=== PATIENT | female | born 1955 | race Caucasian/White ===

== ENCOUNTER 2018-02-28 12:33 | Emergency (ER) | payer OTHER ==
[~2018-02-28] VITALS: Ht 165.1 cm; Wt 89.4 kg
[~2018-02-28 12:33] MED LIST: BACTRIM DS TAB1 EACH PO; CORGARD20 MG PO; DOCUSATE SODIU100 MG PO; DOXYCYCLINE 10100 MG PO; ECOTRIN325 MG PO; HYDROCODONE-AP1 EAC6 PO; KEFLEX500 MG PO; METAMUCIL PAC1 UDPKT PO; NOHOMEMEDICATIONS; OXYCODONE HCL5 MG PO; PERCOCET PO; PHENERGAN 25 MG25 M1 PO; PROTONIX40 M1 PO
[2018-02-28] MEDS ORDERED: AMBIEN 5 MG TABL5 M1 PO (12:41)
[2018-02-28 14:01] LABS: HEMATOCRIT 32.3 % (37.0-47.0); HEMOGLOBIN 11.2 gm/dL (12.0-15.0); MCH 32.7 pg (26.0-34.0); MCHC 34.7 g/dL (28.0-37.0); MCV 94.3 fL (80.0-100.0); MPV 7.1 fl. (7.2-11.1); NUCLEATED RBCS 0 /100WBC; PLATELET COUNT* 128 thou/uL (150-400); RBC 3.42 mil/uL (4.20-5.00); RDW-CV 13.9 % (10.5-14.5); WBC 4.1 thou/uL (4.0-11.0)
[2018-02-28 14:11] LABS: CALCIUM 8.1 mg/dL (8.5-10.1); CREATININE 0.7 mg/dL (0.6-1.3); POTASSIUM 3.8 mmol/L (3.5-5.1)
[2018-02-28 14:16] LABS: ALBUMIN 2.5 g/dL (3.4-5.0); TOTAL BILIRUBIN 1.5 mg/dL (<0.1-1.0); TOTAL PROTEIN 6.7 g/dL (6.4-8.2)
[2018-02-28 14:17] LABS: APTT 34.5 Seconds (25.0-31.3); INR 1.3; PROTIME 13.4 Seconds (9.20-11.50)
[2018-02-28 14:47] LABS: ABSOLUTE EOSINOPHILS 0.4 thou/uL (0.0-0.7); ABSOLUTE LYMPHOCYTES 0.7 thou/uL (0.8-5.3); ABSOLUTE MONOCYTES 0.4 thou/uL (0.0-1.2); ABSOLUTE NEUTROPHILS 2.6 thou/uL (1.6-8.1); ATYPICAL LYMPHS 6 %; PLATELET ESTIMATE ADEQUATE
[2018-02-28] MEDS ORDERED: BACTRIM DS TAB1 EACH PO (16:03)
[2018-02-28 16:16] VITALS: BP 148/88
== END 2018-02-28 16:17 | disposition home or self-care (01) ==
LOC: M.ERS 12:33
PROVIDERS: Personal Emergency Response Attendant
DX: L03.115 Cellulitis of right lower limb (principal); K74.60 Unspecified cirrhosis of liver

== ENCOUNTER 2019-08-04 22:22 | Inpatient (IN) | payer MEDICARE ==
[~2019-08-04] VITALS: Ht 152.4 cm; Wt 103.3 kg
[~2019-08-04 22:22] MED LIST changes: +AMBIEN 5 MG TABL5 M1 PO
[2019-08-04 22:25] VITALS: BP 136/70
[2019-08-04 22:58] LABS: ABSOLUTE LYMPHOCYTES 0.4 thou/uL (0.8-5.3); ABSOLUTE MONOCYTES 0.9 thou/uL (0.0-1.2); ABSOLUTE NEUTROPHILS 4.7 thou/uL (1.6-8.1); BASOPHILS 0.5 %; EOSINOPHILS 0.6 %; HEMOGLOBIN 11.1 gm/dL (12.0-15.0); LYMPHOCYTES 7.2 %; MCH 33.9 pg (26.0-34.0); MCHC 35.7 g/dL (28.0-37.0); MCV 94.9 fL (80.0-100.0); MONOCYTES 15.1 %; NUCLEATED RBCS 0 /100WBC; PLATELET COUNT* 86 thou/uL (150-400); POLYS 76.6 %; RBC 3.26 mil/uL (4.20-5.00); RDW-CV 15.4 % (10.5-14.5); WBC 6.2 thou/uL (4.0-11.0)
[2019-08-04 23:05] LABS: CALCIUM 7.2 mg/dL (8.5-10.1); CREATININE 0.8 mg/dL (0.6-1.3); POTASSIUM 3.4 mmol/L (3.5-5.1)
[2019-08-04 23:16] LABS: ALBUMIN 2.6 g/dL (3.4-5.0); MAGNESIUM 1.8 mg/dL (1.8-2.4); TOTAL BILIRUBIN 3.4 mg/dL (<0.1-1.0); TOTAL PROTEIN 6.4 g/dL (6.4-8.2)
[2019-08-04 23:19] LABS: INR 1.5; PROTIME 15.1 Seconds (9.20-11.50)
[2019-08-05 05:09] VITALS: BP 109/51
[2019-08-05 05:15] VITALS: BP 116/49
[2019-08-05] MEDS ORDERED: AMBIEN 10 MG TA10 MG PO (06:34)
--- NOTE | 2019-08-05 07:10 | NUR ---
RECEIVED REPORT FROM ER NURSE ISAAC. PATIENT BROUGHT TO FLOOR AT 0515. PATIENT ORIENTED TO UNIT, ROOM, CALL-LIGHT, BED, AND HOSPITAL POLICY. ASSESSMENT COMPLETED CHARTED. CARDIAC MONITORING IN PLACE. BED LOCKED AND IN LOWEST POSITION. FALL PRECAUTIONS IN PLACE FOR PATIENT SAFETY. CLWR. HOURLY ROUNDING IN PLACE FOR PATIENT SAFETY.
--- NOTE | 2019-08-05 07:15 | NUR ---
CHANGE OF SHIFT, BEDSIDE REPORT GIVEN PATIENT SEEN AT BEDSIDE, IN BED ASLEEP ASSUMED PATIENT CARE
[2019-08-05 08:32] VITALS: BP 112/54
[2019-08-05 12:13] VITALS: BP 111/45
--- NOTE | 2019-08-05 14:13 | NUR ---
Pt is covid pending, CM spoke with Pt via phone. Pt resides at home with her son. Independent. No DME. No hx of HH or SNF. Goal is home at [place]. Following.
--- NOTE | 2019-08-05 15:28 | EKG ---
[place] [address] ELECTROCARDIOGRAM REPORT Name: RANJAN BAZZI Room: [address] IN ..#: [id number] Admission: 08/05/19 Attend Phys: Elba Dixon, Discharge: Date of : 53 Date of Service: 08/04/19 2233 Report #: [id number] THIS REPORT FOR: //name// [facility] ED Test Date: 2019-08-04 Test Time: 22:33:13 Pat Name: RANJAN BAZZI Department: Room: [facility] Gender: F Vascular Radiologist: ESEQUIEL : 1955 Requested By: Sheron Brown Order Number: [id number] MD: Benjamín Hemphill Measurements Intervals [place] Rate: 99 P: 33 MA: 146 QRS: -35 QRSD: 94 T: 57 QT: 357 QTc: 459 Interpretive Statements Sinus rhythm Atrial premature complex Left axis deviation Anterior infarct, old Compared to ECG 12/10/2016 08:36:58 Atrial premature complex(es) now present Left-axis deviation now present Myocardial infarct finding now present Electronically Signed On 08-05-2019 15:26:56 CDT by Benjamín Hemphill [email or web address] <ELECTRONICALLY SIGNED> By: Benjamín Hemphill MD, FACC 08/05/19 1526 2233 2233 Benjamín Hemphill MD, [facility] /EPI
[2019-08-05 16:03] VITALS: BP 140/71
[2019-08-05 20:00] VITALS: BP 135/64
[2019-08-06] VITALS (8 sets, daily range): BP systolic 116–167; BP diastolic 60–81
--- NOTE | 2019-08-06 05:13 | NUR ---
ASSUMED PT CARE AT APPROX 1930. PT IS AWAKE AND ORIENTED X4. PT IS TRACING ST w/ OCCASSIONAL PACs ON THE TAX CLERK. ASSESSMENT DONE AND CHARTED. PT DENIES PAIN. PT IS SOA WITH ACTIVITY. spO2 IS 90% ON ROOM AIR, PT IS PLACED ON 2L OF O2/NC, spo2-92-94% ON 2L OF O2/NC. PT IS ABLE TO SLEEP MOST OF THE NIGHT. CALL LIGHT WITHIN REACH. HOURLY ROUNDING DONE FOR PT SAFETY. FALL PRECAUTIONS IN PLACE.
[2019-08-06 06:26] LABS: ABSOLUTE BASOPHILS 0.1 thou/uL (0.0-0.2); ABSOLUTE EOSINOPHILS 0.5 thou/uL (0.0-0.7); ABSOLUTE LYMPHOCYTES 0.4 thou/uL (0.8-5.3); ABSOLUTE MONOCYTES 1.1 thou/uL (0.0-1.2); ABSOLUTE NEUTROPHILS 6.6 thou/uL (1.6-8.1); BASOPHILS 0.8 %; EOSINOPHILS 5.3 %; HEMATOCRIT 29.8 % (37.0-47.0); HEMOGLOBIN 10.7 gm/dL (12.0-15.0); LYMPHOCYTES 4.8 %; MCH 33.8 pg (26.0-34.0); MCHC 35.8 g/dL (28.0-37.0); MCV 94.6 fL (80.0-100.0); MONOCYTES 12.9 %; NUCLEATED RBCS 0 /100WBC; PLATELET COUNT* 90 thou/uL (150-400); POLYS 76.2 %; RBC 3.16 mil/uL (4.20-5.00); RDW-CV 15.5 % (10.5-14.5); WBC 8.7 thou/uL (4.0-11.0)
[2019-08-06 06:31] LABS: CREATININE 0.8 mg/dL (0.6-1.3); POTASSIUM 3.5 mmol/L (3.5-5.1)
--- NOTE | 2019-08-06 08:00 | NUR ---
ASSUMED CARE OF PATIENT THIS MORNING FROM NIGHT NURSE. PT IS DOING WELL WITH NO CO OF PAIN OR NAUSEA. SHE WAS EDUCATED ON FALL SAFETY, POC AND USING THE CALL LIGHT FOR ASSISTANCE, WILL CONTINUE TO MONITOR.
--- NOTE | 2019-08-06 12:06 | NUR ---
Covid negative. Per , anticipate dc to home tomorrow.
--- NOTE | 2019-08-06 13:30 | NUR ---
PT BECAME UNSTEADY AND SAT DOWN ON THE FLOOR. SHE WAS ACCESSED AND HAS NO CHANGE IN HER CONDITION. SHE STATES THAT THERE ARE CO OF PAIN OR NAUSEA. WILL CONTINUE TO MONITOR.
--- NOTE | 2019-08-06 16:06 | NUR ---
PT STATES SHE DOES NOT WANT TO BE A FALL RISK. SHE ALSO STATED SHE WILL TURN THE BED ALARM OFF AGAIN. PT WAS RE EDUCATED ON FALL SAFETY, USING THE CALL LIGHT FOR ASSISTANCE. BED IN LOWEST POSITION, CALL LIGHT IN REACH, BED ALARM IS ON. WILL CONTINUE TO MONITOR.
[2019-08-07 04:00] VITALS: BP 126/62
--- NOTE | 2019-08-07 04:22 | NUR ---
ASSUMED PT CARE AT APPROX 1930. PT IS AWAKE AND ORIENTED X4,BUT FORGETFUL. SUGARCANE RESEARCH TECHNICIAN IS TRACING SR/ST. PT DENIES PAIN. PT APPEARS TO BE SHORT OF AIR, BUT PT DENIES THAT SHE IS HAVING TROUBLES BREATHING. PT IS ON 2L OF O2/NC, NO DESATURATIONS NOTED. PT HAD A FEBRILE EPISODE T=102, TYLENOL GIVEN PER APR, REPEAT T=98.1. PT IS ABLE TO SLEEP MOST OF THE NIGHT, CALL LIGHT WITHIN REACH. HOURLY ROUNDING DONE FOR PT SAFETY.HIGH FALL PRECAUTIONS IN PLACE.
[2019-08-07 05:06] LABS: ABSOLUTE BASOPHILS 0.1 thou/uL (0.0-0.2); ABSOLUTE EOSINOPHILS 0.7 thou/uL (0.0-0.7); ABSOLUTE LYMPHOCYTES 0.5 thou/uL (0.8-5.3); ABSOLUTE MONOCYTES 0.8 thou/uL (0.0-1.2); ABSOLUTE NEUTROPHILS 5.2 thou/uL (1.6-8.1); BASOPHILS 0.7 %; EOSINOPHILS 9.3 %; HEMATOCRIT 29.2 % (37.0-47.0); HEMOGLOBIN 10.4 gm/dL (12.0-15.0); LYMPHOCYTES 7.1 %; MCH 33.5 pg (26.0-34.0); MCHC 35.4 g/dL (28.0-37.0); MCV 94.6 fL (80.0-100.0); MONOCYTES 10.7 %; MPV 8.7 fl. (7.2-11.1); NUCLEATED RBCS 0 /100WBC; PLATELET COUNT* 99 thou/uL (150-400); POLYS 72.2 %; RBC 3.09 mil/uL (4.20-5.00); RDW-CV 15.3 % (10.5-14.5); WBC 7.3 thou/uL (4.0-11.0)
[2019-08-07 07:02] LABS: CALCIUM 6.9 mg/dL (8.5-10.1); CREATININE 0.8 mg/dL (0.6-1.3); POTASSIUM 3.4 mmol/L (3.5-5.1)
[2019-08-07 08:15] VITALS: BP 116/68
[2019-08-07 12:00] VITALS: BP 139/72
[2019-08-07 12:12] LABS: URINE BLOOD NEGATIVE (Negative); URINE CLARITY CLEAR; URINE COLOR YELLOW; URINE GLUCOSE-RANDOM NEGATIVE (Negative); URINE KETONES NEGATIVE (Negative); URINE LEUKOCYTES-REFLEX NEGATIVE (Negative); URINE NITRITE-REFLEX NEGATIVE (Negative); URINE PROTEIN NEGATIVE (Negative); URINE SPECIFIC GRAVITY 1.025 (1.005-1.030)
[2019-08-07 12:14] LABS: ICTOTEST (BILI CONFIRMATORY) Negative (Negative); URINE BILIRUBIN 1+ (Negative)
--- NOTE | 2019-08-07 12:23 | NUR ---
Per , no dc today, Pt febrile within the past 24 hours.
[2019-08-07 16:00] VITALS: BP 153/84; BP 157/74
--- NOTE | 2019-08-07 19:26 | NUR ---
ASSESSMENT CHARTED. VSS THROUGHOUT SHIFT. UP WITH SBA IN ROOM. TITRATED TO ROOM AIR. STILL LABORED WITH HER BREATHING AND SOME WHEEZING ON AND OFF. SOA WITH ANY MOVEMENT. NO OTHER COMPLAINTS.
[2019-08-07 20:22] VITALS: BP 158/67
[2019-08-07 23:45] VITALS: BP 144/63
[2019-08-08 04:00] VITALS: BP 153/67
[2019-08-08 05:09] LABS: CREATININE 0.6 mg/dL (0.6-1.3); POTASSIUM 3.9 mmol/L (3.5-5.1)
[2019-08-08 08:00] VITALS: BP 124/68
--- NOTE | 2019-08-08 08:03 | NUR ---
PT IS ABLE TO COMMUNICATE HER NEEDS TO STAFF EFFECTIVELY. SHE HAS DENIED THE NEED FOR PAIN MEDICATION UP TO THIS TIME. BED ALARM ON, HIGH FALL RISK.
--- NOTE | 2019-08-08 10:07 | NUR ---
0730 ASSUMED CARE OF PATIENT. PLEASE SEE DOCUMENTED ASSESSMENT. ONLY PATIENT COMPLAINT IS SORE IV WHICH IS NOTED TO BE DISLODGED AND WAS REMOVED.
--- NOTE | 2019-08-08 11:58 | NUR ---
ID consulted. Plan home with son at vt. Following.
[2019-08-08 12:00] VITALS: BP 146/74
--- NOTE | 2019-08-08 12:06 | NUR ---
Nutrition: screen d/t BMI. Pt reported doing well with meals, normal appetite. Wt up from last year. ALbumin 2.6. BG 91-126. Meds reviewed. Pt declined diet infomation. Assess at low nutrition risk at this time.
--- NOTE | 2019-08-08 14:54 | 2DMMODE ---
[place] [address] 2 D/M-MODE ECHOCARDIOGRAM Name: BAZZIRANJAN Room: [address] IN .R.#: [id number] Admission: 08/05/19 Attend Phys: Elba Dixon, Discharge: Date of : 53 Date of Service: 08/08/19 1453 Report #: [id number] THIS REPORT FOR: cc: FAM - No family physician/PCP FAM - No family physician/PCP Ranjit Christian MD [facility] ~ APPROVED REPORT Study performed: 08/08/2019 12:58:36 EXAM: Comprehensive 2D, Doppler, and color-flow Echocardiogram Patient Location: In-Patient BSA: 1.95 HR: 95 bpm BP: 146/74 mmHg Other Information Study Quality: Good Indications Dyspnea Fever 2D Dimensions IVSd: 12.27 (7-11mm) LVOT Diam: 20.73 (18-24mm) LVDd: 49.09 mm PWd: 11.75 (7-11mm) Ascending Ao: 30.71 (22-36mm) LVDs: 38.67 (25-40mm) Aortic Root: 22.96 mm Volumes Left Atrial Volume (Systole) LA ESV Index: 18.10 mL/m2 Aortic Valve AoV Peak Bello.: 2.63 m/s AO Peak Gr.: 27.62 mmHg LVOT Max P.87 mmHg AO Mean Gr.: 15.94 mmHg LVOT Mean P.49 mmHg LVOT Max V: 1.31 m/s AO V2 VTI: 55.79 cm LVOT Mean V: 0.86 m/s LUANN (VTI): 1.58 cm2 LVOT V1 VTI: 26.14 [place] [address] 2 D/M-MODE ECHOCARDIOGRAM Name: RANJAN BAZZI Room: [address] IN .R.#: [id number] Admission: 08/05/19 Attend Phys: Elba Dixon, Discharge: Date of : 53 Date of Service: 08/08/19 1453 Report #: [id number] Mean Gr.: 5.69 mmHg E/A Ratio: 1.21 MV Decel. Time: 192.69 ms MV E Max Bello.: 1.28 m/s MV PHT: 55.88 ms MVA (PHT): 3.94 cm2 TDI E/Lateral E': 16.00 E/Medial E': 9.14 Medial E' Bello.: 0.14 m/s Lateral E' Bello.: 0.08 m/s Pulmonary Valve PV Peak Bello.: 1.46 m/s PV Peak Gr.: 8.57 mmHg Tricuspid Valve RAP Estimate: 5.00 mmHg TR Peak Gr.: 31.06 mmHg RVSP: 36.06 mmHg PA Pressure: 36.06 mmHg Left Ventricle The left ventricle is normal size. There is normal LV segmental wall motion. Mild concentric left ventricular hypertrophy. Left ventricular systolic function is normal. The left ventricular ejection fraction is within the normal range. LVEF is 60%. The left ventricular diastolic function is normal. Right Ventricle The right ventricle is normal size. The right ventricular systolic function is normal. Atria Left atrium is mildly dilated. The right atrium size is normal. Aortic Valve The Aortic valve is sclerotic. No aortic regurgitation is present. Mild to moderate aortic stenosis. Mitral Valve There is mitral annular calcification. Mild mitral regurgitation. No evidence of mitral valve stenosis. Tricuspid Valve The tricuspid valve is normal in structure. Trace [place] [address] 2 D/M-MODE ECHOCARDIOGRAM Name: BAZZIRANJAN Room: [address]#: [id number] Admission: 08/05/19 Attend Phys: Elba Dixon, Discharge: Date of : 53 Date of Service: 08/08/19 1453 Report #: [id number] Pulmonic Valve The pulmonary valve is normal in structure. There is no pulmonic valvular regurgitation. Great Vessels The aortic root is normal in size. IVC is not well visualized. Pericardium There is no pericardial effusion. Possible pleural effusion. <Conclusion> The left ventricle is normal size. Mild concentric left ventricular hypertrophy. Left ventricular systolic function is normal. The left ventricular ejection fraction is within the normal range. LVEF is 60%. The right ventricle is normal size. Left atrium is mildly dilated. The right atrium size is normal. The Aortic valve is sclerotic. No aortic regurgitation is present. Mild to moderate aortic stenosis. There is mitral annular calcification. Mild mitral regurgitation. No evidence of mitral valve stenosis. The tricuspid valve is normal in structure. There is normal LV segmental wall motion. <ELECTRONICALLY SIGNED> By: Ranjit Christian MD, FACC 08/08/19 1453 1453 1453 Ranjit Christian MD, FACC /INF
[2019-08-08 15:52] VITALS: BP 105/63
--- NOTE | 2019-08-08 18:13 | NUR ---
PATIENT WITH SOME PROGRESSION TOWARDS GOALS. HAS BEEN ON ROOM AIR MOST OF THE DAY. REMAINS SOA WITH EXERTION AND USUALLY CLIPS WORDS. IV ANTIBIOTICS RESUMED. HAS BEEN UP TO BATHROOM AND IN ROOM MORE. PATIENT WOULD LIKE TO GO HOME TOMORROW.
[2019-08-08 20:00] VITALS: BP 151/74
[2019-08-08 23:45] VITALS: BP 146/58
[2019-08-09 04:00] VITALS: BP 119/53
[2019-08-09 04:19] LABS: HEMATOCRIT 29.8 % (37.0-47.0); HEMOGLOBIN 10.6 gm/dL (12.0-15.0); MCH 33.2 pg (26.0-34.0); MCHC 35.4 g/dL (28.0-37.0); MCV 93.9 fL (80.0-100.0); MPV 8.2 fl. (7.2-11.1); RBC 3.18 mil/uL (4.20-5.00); RDW-CV 15.4 % (10.5-14.5); WBC 5.9 thou/uL (4.0-11.0)
[2019-08-09 05:19] LABS: CALCIUM 7.4 mg/dL (8.5-10.1); CREATININE 0.6 mg/dL (0.6-1.3); MAGNESIUM 1.9 mg/dL (1.8-2.4); POTASSIUM 3.9 mmol/L (3.5-5.1)
[2019-08-09 08:00] VITALS: BP 131/64
[2019-08-09] MEDS ORDERED: LINEZOLID600 MG PO (10:10)
[2019-08-09] MEDS ORDERED: CEFDINIR300 MG PO (10:10)
--- NOTE | 2019-08-09 10:31 | CON ---
[address] [address] CONSULTATION Name: JLUISRANJAN Adeel Room: [address] IN M.R.#: [id number] Admission: 08/05/19 Attend Phys: Elba Dixon MD Discharge: Date of : 53 Report #: [id number] THIS REPORT FOR: //name// cc: TAURUS Velez family physician/PCP TAURUS - Rosie family physician/PCP ~ THIS REPORT FOR: //name// CC: [facility] physician/PCP Elba Dixon DATE OF SERVICE: 08/08/2019 INFECTIOUS DISEASE CONSULTATION ATTENDING PHYSICIAN: Stalin Wing MD REASON FOR EVALUATION: Pneumonitis with positive MRSA surveillance of the nares. The patient has improved, although remains markedly dyspneic. Recommendation for antimicrobial therapy. HISTORY OF PRESENT ILLNESS: Chart reviewed, patient examined. This is a 64-year-old woman who notes a previous history of pneumonia back in 01/2019. She recovered fully. She noted over the course of the last 3 weeks, had increasing swelling associated with her bilateral lower extremities, right greater than left. This is not new for her, although it was not explained at this point. She has underlying cirrhosis with portal venous hypertension. She was taking her grandchild to the dentist, was on screen, was found to have fevers. These persisted, she became progressively dyspneic. Over the course of the couple of days prior to admission, did have associated cough that was nonproductive and progressive weakness. Denies significant gastrointestinal-related complaints. She was evaluated and tested negative for SARS-CoV-2. Repeat test was again negative as well. Chest x-ray showed a clear wedge-shaped infiltrate in right middle lobe. CT confirmed that without evidence of pulmonary embolus, a normal lactic acid and troponin level was normal. Empirically started on combination therapy with cefdinir as well as azithromycin. Clinically, she states she has improved, although she is overtly dyspneic at rest. She is intermittently on supplemental oxygen. She does have a cough and still it is nonproductive. Repeat chest x-ray actually showed improvement of the wedge-shaped infiltrate. MRSA by PCR was positive for surveillance. Vancomycin was added. Denies any particular exposure history. She works at a [employer], exposed to the public. Denies any animal exposure, no recent travel. ALLERGIES: None known. MEDICATIONS: Include vancomycin, albuterol, azithromycin, cefdinir, famotidine, [place] [address] CONSULTATION Name: BAZZIRANJAN Room: [address] IN [facility]#: [id number] Admission: 08/05/19 Attend Phys: Elba Dixon MD Discharge: Date of : 53 Report #: [id number] enoxaparin, zolpidem, hydralazine, ondansetron as needed. PAST MEDICAL HISTORY: Has known history of hepatitis C, she has got cirrhosis, portal hypertension, splenomegaly, bilateral lower extremity edema, likely venous stasis component of venous hypertension, previous total knee replacement, laparoscopic cholecystectomy, hysterectomy, hernia surgeries, colon resection for cancer. SOCIAL HISTORY: Nonsmoker, no ethanol, no illicit drug use. FAMILY HISTORY: Noncontributory. REVIEW OF SYSTEMS: As above, otherwise unremarkable. PHYSICAL EXAMINATION: GENERAL: She is overtly dyspneic with tachypnea, lying in the right lateral decubitus position. She is generally lucid. She is in moderate distress, overall appears somewhat chronically ill, although obese. She is undernourished. VITAL SIGNS: Temperature 98.2, T-max in the last 48 hours of 102. Temperature curve has trended to the normal. Pulse 91, respirations 20, blood pressure is 124/68. SKIN: Warm, dry. HEENT: Normocephalic. Extraocular muscles intact. NECK: Supple. LUNGS: On early exam, there were some wheezes. This improved with a course of deeper breathing. Also, diminished breath sounds on the right. Few scattered crackles. HEART: Regular. She does have a murmur. ABDOMEN: Obese, soft, nontender. EXTREMITIES: Marked edema is somewhat asymmetrical right greater than left, but 3-4+ nonpitting. GENITOURINARY AND RECTAL: Deferred. LABORATORY DATA: Glucose is high at 129 recently. PCR for MRSA was positive. Electrolytes: Sodium 136, potassium 3.9, chloride 105, bicarbonate is 28, BUN and creatinine 10 and 0.6, anion gap of 3, glucose of 92. Estimated GFR of 100. Urinalysis otherwise unremarkable microscopically. Chest x-ray in followup showed definite improvement in infiltrates involving the posterior superior lateral aspect of the right middle lobe. CBC from yesterday; white count of 7.3, hemoglobin 10.4, hematocrit 29.2, platelets of 99. Blood cultures are sterile thus far. Prealbumin low at 5.1. Coronavirus was negative. CT of the chest PE protocol, mild cardiomegaly, had pericardial effusion, wedge-shaped atelectasis, right middle lobe with suspected pneumonitis, marked splenomegaly, nodular appearing liver consistent with cirrhosis. No evidence of acute PE. Liver functions: AST of 3.4, ALT of 21, although bilirubin was 3.4, albumin of [facility] [address] [place] [address] CONSULTATION Name: RANJAN BAZZI Room: [address] IN [facility]#: [id number] Admission: 08/05/19 Attend Phys: lEba Dixon MD Discharge: Date of : 53 Report #: [id number] 2.6, total protein is 6.4, elevated D-dimer of 9.92. ASSESSMENT: Pneumonitis in a patient that certainly appears to have an infectious component. So, the driving at this point is not clear. We will continue empiric therapy. Noted that vancomycin was added. I think it is worthwhile to explore other options and we will check echocardiogram and see if there is a primary cardiac issue here. Certainly, suggests some right sided related edema or that is primarily hepatic, it is not entirely clear. We would be worried about a deep venous thrombosis. We will check venous Dopplers as well, although the CT did have an elevated D-dimer. Given her size, it may be difficult interpreting some of these diagnostic tests. We will continue supportive measures. Noted the decrease in fever seemed to have occurred in the absence of treatment for MRSA. So, although covering for that, certainly at risk for aspiration. She uses the incentive spirometer. <ELECTRONICALLY SIGNED> By: Camilo Griffin MD 08/09/19 1031 1155 [id number] Griffin MD /nt
[2019-08-09 10:45] VITALS: BP 131/64
[2019-08-09 10:47] VITALS: BP 131/64
[2019-08-09] MEDS ORDERED: ALBUTEROL2.5 MG/3 M INH (10:55)
--- NOTE | 2019-08-09 11:39 | NUR ---
PT IS AOX4. ON 2 L NC. VSS. DENIES PAIN. RT REST AND EXERCISE . PT REQUIRED 3 L NC. WITH ACTIVITY. THIS NURSE CONTACTED [facility] FOR O2 ET UP AND DELIVERY. DELIVERY PERSONEL SAYS HE WILL GET TO HOSPITAL AT 1215. PT MADE AWARE. DISCHARGE INSTRUCTION GIVEN TO PATIENT. PT STATES UNDERSTANDING. PO ANTIBIOTICS GIVEN. NEW MEDICATION SCRIPTS GIVEN. FALL PRECAUTION IN PLACE. CALL LIGHT AT REACH. WILL AWAIT FOR O2 DELIVERY
--- NOTE | 2019-08-09 12:50 | NUR ---
O2 DELIVERED AT 1220 IN PT ROOM. PT ATTACHED TO [facility]. THIS NURSE FAXED O2 ORDER, NOTE, AND PT'S FACESHEET TO [facility] [place]. DC INSTRUCTIONS GIVEN. PT LEFT UNIT AT 1240 ACCOMPANIED BY NURSE STAFF ON WHEELCHAIR. BELONGINGS BROUGHT ALONG
== END 2019-08-09 12:40 | disposition home or self-care (01) | DRG 871 ==
LOC: M.ERS 22:22 → M.2W 08-05 02:41 → M.TBA-ER 08-05 02:41 → M.2W 08-05 05:19
PROVIDERS: Emergency Medicine; Internal Medicine; ADMIT Internal Medicine; ATTEND Internal Medicine
DX: A41.02 Sepsis due to Methicillin resistant Staphylococcus aureus (principal); J15.212 Pneumonia due to Methicillin resistant Staphylococcus aureus; J96.90 Respiratory failure, unspecified, unspecified whether with hypoxia or hypercapnia; Z68.41 Body mass index [BMI] 40.0-44.9, adult; K74.60 Unspecified cirrhosis of liver; D69.6 Thrombocytopenia, unspecified; E66.01 Morbid (severe) obesity due to excess calories; I89.0 Lymphedema, not elsewhere classified; I35.0 Nonrheumatic aortic (valve) stenosis; Z96.651 Presence of right artificial knee joint; Z96.1 Presence of intraocular lens; Z96.652 Presence of left artificial knee joint; Z90.710 Acquired absence of both cervix and uterus; Z90.49 Acquired absence of other specified parts of digestive tract; Z98.42 Cataract extraction status, left eye; Z98.41 Cataract extraction status, right eye; Z79.899 Other long term (current) drug therapy; Z85.038 Personal history of other malignant neoplasm of large intestine; Z03.818 Encounter for observation for suspected exposure to other biological agents ruled out

== ENCOUNTER 2020-03-19 16:55 | Inpatient (IN) | payer MEDICARE ==
[~2020-03-19] VITALS: Ht 157.5 cm; Wt 100.2 kg
[~2020-03-19 16:55] MED LIST changes: +ALBUTEROL2.5 MG/3 M INH; +AMBIEN 10 MG TA10 MG PO; +CEFDINIR300 MG PO; +LINEZOLID600 MG PO
[2020-03-19 16:58] VITALS: BP 191/93
[2020-03-19 17:48] LABS: ABSOLUTE EOSINOPHILS 0.5 thou/uL (0.0-0.7); ABSOLUTE LYMPHOCYTES 0.5 thou/uL (0.8-5.3); ABSOLUTE MONOCYTES 0.8 thou/uL (0.0-1.2); ABSOLUTE NEUTROPHILS 7.6 thou/uL (1.6-8.1); EOSINOPHILS 5.4 %; HEMATOCRIT 32.9 % (37.0-47.0); HEMOGLOBIN 11.2 gm/dL (12.0-15.0); LYMPHOCYTES 4.9 %; MCH 33.5 pg (26.0-34.0); MCV 98.6 fL (80.0-100.0); MONOCYTES 8.1 %; MPV 7.7 fl. (7.2-11.1); NUCLEATED RBCS 0 /100WBC; PLATELET COUNT* 126 thou/uL (150-400); POLYS 81.6 %; RBC 3.34 mil/uL (4.20-5.00); RDW-CV 15.2 % (10.5-14.5); WBC 9.3 thou/uL (4.0-11.0)
[2020-03-19 17:58] LABS: CALCIUM 7.5 mg/dL (8.5-10.1); CREATININE 0.9 mg/dL (0.6-1.3)
[2020-03-19 18:09] LABS: ALBUMIN 2.3 g/dL (3.4-5.0); TOTAL BILIRUBIN 2.4 mg/dL (<0.1-1.0); TOTAL PROTEIN 6.2 g/dL (6.4-8.2)
[2020-03-19 18:15] LABS: APTT 35.9 Seconds (25.0-31.3); INR 1.4; PROTIME 14.6 Seconds (9.20-11.50)
[2020-03-19 22:45] VITALS: BP 143/89
--- NOTE | 2020-03-19 23:10 | NUR ---
PAGED DR CRONIN REGARDING ELEVATED TROPONINS, WAITING FACING BASTER JUMPBASTING BACK
[2020-03-20] VITALS (8 sets, daily range): BP systolic 87–134; BP diastolic 42–69
[2020-03-20 08:50] LABS: CALCIUM 7.8 mg/dL (8.5-10.1); CREATININE 0.9 mg/dL (0.6-1.3); POTASSIUM 3.3 mmol/L (3.5-5.1)
[2020-03-20 08:53] LABS: MAGNESIUM 1.8 mg/dL (1.8-2.4); PHOSPHORUS* 3.1 mg/dL (2.5-4.9)
--- NOTE | 2020-03-20 10:23 | EKG ---
[place] [address] ELECTROCARDIOGRAM REPORT Name: RANJAN BAZZI Room: [place] [address] ADM IN ..#: [id number] Admission: 03/19/20 Attend Phys: Marina Carranza Discharge: Date of : 53 Date of Service: 03/19/20 1720 Report #: [id number] THIS REPORT FOR: //name// [facility] ED Test Date: 2020-03-19 Test Time: 17:20:39 Pat Name: RANJAN BAZZI Department: Room: [facility] Gender: F Chief Radiologic Technologist: : 1955 Requested By: Zander Melgar Order Number: [id number] MD: Ivan Simon Measurements Intervals [place] Rate: 116 P: -22 MI: 168 QRS: -32 QRSD: 98 T: 73 QT: 357 QTc: 497 Interpretive Statements Sinus tachycardia with irregular rate Left axis deviation Consider anterior infarct Minimal ST depression, lateral leads Baseline wander in lead(s) II,III,aVF Compared to ECG 08/04/2019 22:33:13 Sinus rhythm no longer present Myocardial infarct finding still present Electronically Signed On 03-20-2020 10:23:01 CUT FILE CLERK by Ivan Simon [email or web address] <ELECTRONICALLY SIGNED> By: Ivan Simon MD, [facility] 03/20/20 1023 1720 1720 Ivan Siomn MD, [facility] /EPI
--- NOTE | 2020-03-20 13:10 | CON ---
[address] [address] CONSULTATION Name: RANJAN BAZZI Adeel Room: [address] ADM IN M.R.#: [id number] Admission: 03/19/20 Attend Phys: Paula Andrade Discharge: Date of : 53 Report #: [id number] THIS REPORT FOR: cc: FAM - No family physician/PCP FAM - No family physician/PCP ~ Ivan Simon MD [facility] DATE OF SERVICE: 03/19/2020 CARDIOLOGY CONSULTATION HISTORY OF PRESENT ILLNESS: The patient is a 64-year-old single white female who I was asked to see in the hospital today because of shortness of breath. The patient has an extensive past medical history. She was actually admitted here to [place] last July with pneumonia and respiratory insufficiency. She was treated with antibiotics. She actually underwent an echocardiogram last July that showed evidence of aortic stenosis, peak gradient of 28 mmHg with only mild mitral regurgitation. Ejection fraction was 60%. There was left ventricular hypertrophy, left atrial enlargement. The patient apparently has never had a stress test. She was not very active at this time. She notes that for the past several months she has had increasing swelling of her feet. She actually wrapped her legs with Douglas wraps in the past to help with the swelling. For the past few days, she has had increasing shortness of breath. She does note heaviness in her chest, although it does not radiate. She denied any fever, cough, pain in her legs. She finally came to the hospital yesterday and is admitted for further evaluation and treatment. PAST MEDICAL HISTORY: She has had previous tonsillectomy, cholecystectomy, hysterectomy, history of colon cancer treated with chemotherapy. She has a history of hepatitis C and was treated at in the past. MEDICATIONS: Her only current medications include Ambien. ALLERGIES: She has no known drug allergies. FAMILY HISTORY: Negative for heart disease. SOCIAL HISTORY: She is and lives in [place], [place]. She is a sr. operations manager. No smoking or alcohol abuse. REVIEW OF SYSTEMS: She is overweight, being 5 feet 2, 180 pounds. No history of stroke, asthma, kidney disease, psychiatric illness or chronic skin condition. PHYSICAL EXAMINATION: [place] [address] CONSULTATION Name: RANJAN BAZZI Room: [address]#: [id number] Admission: 03/19/20 Attend Phys: Paula Andrade Discharge: Date of : 53 Report #: [id number] GENERAL: Revealed a middle-aged female, who appeared in no acute distress. VITAL SIGNS: Blood pressure 140/90, pulse 90. She is afebrile. HEENT: She was anicteric. Conjunctivae pink. Mucous membranes moist. NECK: Veins nondistended. No carotid bruits. CHEST: Decreased breath sounds in the bases. CARDIOVASCULAR: Regular rate and rhythm, grade 4 systolic ejection murmur at left sternal border. ABDOMEN: Obese. EXTREMITIES: Had 1+ pitting edema. Dorsalis pedis pulse 2+ bilaterally. SKIN: Cool and dry. NEUROLOGIC: Nonfocal. RADIOLOGICAL DATA: Her ECG on admission showed sinus tachycardia, left axis, poor R-wave progression, nonspecific T-wave changes. Workup in the Emergency Room yesterday, she had a chest x-ray that showed cardiomegaly, some atelectasis, otherwise clear lung espinoza, evidence of a hiatal hernia. Previous venous duplex scan of her legs last July because of the swelling showed no DVT. She actually had a CT scan of the chest using a PE protocol yesterday in the Emergency Room that showed no evidence of pulmonary embolus, small right pleural effusion, some atelectasis, evidence of cirrhosis with splenomegaly. There was ascites, evidence of esophageal varices, edema was noted. LABORATORY WORK: Yesterday, sodium 139, potassium 3.3, BUN 7, creatinine 0.9, glucose is 156, albumin 2.3. Troponin 0.11. BNP 2816. TSH 1.0. Her white blood cell count 9.3, hematocrit 32 and it was actually 29 last summer. Previous workup of her anemia included iron saturation of 16%. Her COVID antigen test was negative. Urinalysis last summer showed no protein. IMPRESSION AND RECOMMENDATIONS: 1. Diastolic heart failure. Recommend Lasix. 2. Mild aortic stenosis. 3. Obesity. 4. Elevated blood glucose. I would rule out diabetes. 5. Evidence of cirrhosis. 6. Possible esophageal varices. 7. History of hepatitis C. 8. Remote history of colon cancer. <ELECTRONICALLY SIGNED> By: Ivan Simon MD, FACC 03/20/20 1310 1047 [id number] Simon MD, FACC /nt
--- NOTE | 2020-03-20 14:22 | NUR ---
PT ADMITTED WITH CHF AND HYPOXIA. PT ALERT AND ORIENTED. PT ORIENTED TO ROOM. PT LOW GRADE TEMP, TYLENOL GIVEN. MG AND K REPLACED PER PROTOCOL. PT DENIES ANY NEEDS AT THIS TIME.
--- NOTE | 2020-03-20 16:49 | NUR ---
PT REMAINED ALERT AND ORIENTED. PT RESTING IN BED. PT LOW GRADE TEMP, TYLENOL ADMINSITERED. POTASSIUM AND MG REPLACED. PT C/O BEING COLD, ROOM TEMP INCREASED AND WARM BLANKETS PROVIDED. HOURLY ROUNDING COMPLETED. WOUND PICS TAKEN.
[2020-03-20 20:00] LABS: MAGNESIUM 1.8 mg/dL (1.8-2.4); POTASSIUM 3.9 mmol/L (3.5-5.1)
[2020-03-21 04:00] VITALS: BP 91/41
[2020-03-21 05:39] LABS: ANION GAP 7 mmol/L (7-16); BUN 18 mg/dL (7-18); CALCIUM 7.4 mg/dL (8.5-10.1); CHLORIDE 105 mmol/L (98-107); CHOLESTEROL 90 mg/dL (<200); CO2 27 mmol/L (21-32); GLUCOSE 104 mg/dL (70-99); HDL CHOLESTEROL 34 mg/dL (>40); LDL CHOLESTEROL 48 mg/dL (<100); POTASSIUM 3.9 mmol/L (3.5-5.1); SODIUM 139 mmol/L (136-145); TC:HDL 2.6 Ratio (Not establshd); TRIGLYCERIDE 41 mg/dL (<150); VLDL 8 mg/dL (<40)
[2020-03-21 06:02] LABS: SERUM ASSESSMENT CLEAR
--- NOTE | 2020-03-21 08:25 | NUR ---
PT IS ABLE TO COMMUNICATE HER NEEDS TO STAFF EFFECTIVELY. CURRENT PAIN MEDICATION REGIMENHAS BEEN ADEQUATE FOR CONTROLLING HER PAIN UP TO 0700 THIS MORNING. POSSIBLE DISCHARGE TODAY; PT HAS INDICATED SHE IS READY TO GO HOME.
[2020-03-21 09:00] VITALS: BP 107/12; BP 107/45
[2020-03-21 12:09] VITALS: BP 100/42
[2020-03-21 16:35] VITALS: BP 101/48
--- NOTE | 2020-03-21 18:10 | NUR ---
ALERT AND ORIENTED X4. UP AD EMELY IN ROOM WITHOUT DIFFICULTY. DENIES NEED FOR PAIN MEDICATIONS. STARTED ON IV ANTIBIODIC WITHOUT ADVERSE REACTIONS OR SIDE EFFECTS. HAS SEVERAL SMALL SCABS/SORE ON BILATERAL LOWER EXTREMITIES OPEN TO AIR. NOTIFIED OF AM V/S. USES CALL LIGHT FOR ASSIST.
--- NOTE | 2020-03-21 18:15 | NUR ---
REMAINS ON HEART MONITOR AT THIS TIME.
[2020-03-21 20:00] VITALS: BP 114/57
[2020-03-22] VITALS: BP 115/54
[2020-03-22 04:00] VITALS: BP 107/43
[2020-03-22 04:14] LABS: CALCIUM 7.6 mg/dL (8.5-10.1); CREATININE 0.9 mg/dL (0.6-1.3); POTASSIUM 3.9 mmol/L (3.5-5.1)
--- NOTE | 2020-03-22 06:01 | NUR ---
ASSUMED CARE OF PT AFTER REPORT AT 1930. PT A&OX4. VSS. PHYSICAL ASSESSMENT COMPLETED AND CHARTED. PT ON RA. PT TRACING SR/ST/PVC ON TELE. PT UPADLIB TO RESTROOM. PT COMPLAINED OF RUQ ABDOMINAL/RIB PAIN. PT ALSO WITH EPISODE OF FEVER-MED GIVEN PER APR. CALL LIGHT WITHIN REACH.
[2020-03-22 06:06] LABS: GLYCOHEMOGLOBIN (HGB A1C) 4.5 % (4.8-5.6)
[2020-03-22 08:00] VITALS: BP 116/59
[2020-03-22] MEDS ORDERED: LASIX 40 MG TAB40 M2 PO (09:07)
[2020-03-22] MEDS ORDERED: VIBRAMYCIN 100100 M2 PO (09:07)
--- NOTE | 2020-03-22 10:03 | NUR ---
CM SPOKE TO THE PT TO DISCUSS CM ASSESSMENT. PT A&O, INDEPENDENT WITH ADL'S, AND DRIVES. PT RESIDES AT HOME ALONE. PT USES 2L OXYGEN AT HOME PRN PROIVDED BY DEREK. PT HAS 0 HX OF HH OR SNF. CM WILL REMAIN AVAILABLE TO ASSIST AND FOLLOW NEEDED.
[2020-03-22 11:53] VITALS: BP 109/54
[2020-03-22 14:32] VITALS: BP 109/54
--- NOTE | 2020-03-22 14:52 | 2DMMODE ---
[place] [address] 2 D/M-MODE ECHOCARDIOGRAM Name: BAZZIRANJAN Room: [address] IN .R.#: [id number] Admission: 03/19/20 Attend Phys: Marina Carranza Discharge: Date of : 53 Date of Service: 03/22/20 1452 Report #: [id number] THIS REPORT FOR: cc: FAM - No family physician/PCP FAM - No family physician/PCP Ranjit Christian MD [facility] ~ APPROVED REPORT Study performed: 03/22/2020 10:50:50 EXAM: Comprehensive 2D, Doppler, and color-flow Echocardiogram Patient Location: In-Patient Room #: 230 Status: routine BSA: 1.99 HR: 84 bpm BP: 116/59 mmHg Rhythm: NSR Other Information Study Quality: Good Indications Congestive Heart Failure 2D Dimensions IVSd: 14.87 (7-11mm) LVOT Diam: 19.84 (18-24mm) LVDd: 45.96 mm PWd: 13.08 (7-11mm) Ascending Ao: 29.52 (22-36mm) LVDs: 29.84 (25-40mm) Aortic Root: 25.83 mm Volumes Left Atrial Volume (Systole) LA ESV Index: 39.80 mL/m2 Aortic Valve AoV Peak Bello.: 2.99 m/s AO Peak Gr.: 35.87 mmHg LVOT Max P.66 mmHg AO Mean Gr.: 22.36 mmHg LVOT Mean P.33 mmHg LVOT Max V: 1.47 m/s AO V2 VTI: 61.27 cm LVOT Mean V: 0.95 m/s LUANN (VTI): 1.54 cm2 LVOT V1 VTI: 30.43 [place] [address] 2 D/M-MODE ECHOCARDIOGRAM Name: RANJAN BAZZI Room: [address]#: [id number] Admission: 03/19/20 Attend Phys: Marina Carranza Discharge: Date of : 53 Date of Service: 03/22/20 1452 Report #: [id number] Mitral Valve E/A Ratio: 1.07 MV Decel. Time: 267.28 ms MV E Max Bello.: 1.38 m/s MV PHT: 77.51 ms MVA (PHT): 2.84 cm2 TDI E/Lateral E': 15.33 E/Medial E': 8.63 Medial E' Bello.: 0.16 m/s Lateral E' Bello.: 0.09 m/s Pulmonary Valve PV Peak Bello.: 1.56 m/s PV Peak Gr.: 9.75 mmHg Tricuspid Valve RAP Estimate: 5.00 mmHg TR Peak Gr.: 36.45 mmHg RVSP: 41.00 mmHg PA Pressure: 41.00 mmHg Left Ventricle The left ventricle is normal size. There is normal LV segmental wall motion. There is normal left ventricular wall thickness. Left ventricular systolic function is normal. The left ventricular ejection fraction is within the normal range. LVEF is 60-65%. This study is not technically sufficient to allow evaluation of the LV diastolic function. Right Ventricle The right ventricle is normal size. The right ventricular systolic function is normal. Atria Left atrium is mildly dilated. The right atrium size is normal. Aortic Valve Mild aortic valve sclerosis. No aortic regurgitation is present. Mild aortic stenosis. Mitral Valve There is mitral annular calcification. Trace mitral regurgitation. No evidence of mitral valve stenosis. Tricuspid Valve The tricuspid valve is normal in structure. [place] [address] 2 D/M-MODE ECHOCARDIOGRAM Name: RANJAN BAZZI Room: [address]#: [id number] Admission: 03/19/20 Attend Phys: Marina Carranza Discharge: Date of : 53 Date of Service: 03/22/20 1452 Report #: [id number] regurgitation. Mild pulmonary hypertension. Pulmonic Valve The pulmonary valve is normal in structure. There is no pulmonic valvular regurgitation. Great Vessels The aortic root is normal in size. IVC is normal in size and collapses >50% with inspiration. Pericardium There is no pericardial effusion. <Conclusion> The left ventricle is normal size. There is normal left ventricular wall thickness. Left ventricular systolic function is normal. The left ventricular ejection fraction is within the normal range. LVEF is 60-65%. The right ventricle is normal size. Left atrium is mildly dilated. Mild aortic valve sclerosis. No aortic regurgitation is present. Mild aortic stenosis. There is mitral annular calcification. Trace mitral regurgitation. The tricuspid valve is normal in structure. Mild tricuspid regurgitation. Mild pulmonary hypertension. IVC is normal in size and collapses >50% with inspiration. There is no pericardial effusion. There is normal LV segmental wall motion. <ELECTRONICALLY SIGNED> By: Ranjit Christian MD, FACC 03/22/20 1452 51 [id number] Ranjit Christian MD, FACC /INF
--- NOTE | 2020-03-22 16:17 | NUR ---
PATIENT WAS SEEN PRIOR TO DISCHARGE TODAY AND IS EXPERIENCING SIGNIFICANT LYMPHEDEMA IN BLE FROM KNEES TO TOES. EDEMA IS 3+ PITTING. PATIENT ALSO WITH MULTIPLE DRY SCABS ON THE RLE WHICH SHE REPORTS IS FROM SCRATCHING IN HER SLEEP AT NIGHT. APPLIED 2 LAEYR SIZE G TUBIGRIPS TO BLE AND RECOMMENDED SKIN LESIONS REMAIN OPEN TO AIR AND FOR APPT AT A LYMPHEDEMA CLINIC FOR EVALUATION AND TREATMENT. PATIENT STATES SHE UNDERSTANDS.
== END 2020-03-22 15:15 | disposition home or self-care (01) | DRG 292 ==
LOC: M.ERS 16:55 → M.2W 18:45 → M.TBA-ER 18:45 → M.2W 03-20 12:53
PROVIDERS: Family Medicine; Internal Medicine; Internal Medicine Cardiovascular Disease; ADMIT Internal Medicine; ATTEND Internal Medicine
DX: I50.33 Acute on chronic diastolic (congestive) heart failure (principal); E44.1 Mild protein-calorie malnutrition; Z68.41 Body mass index [BMI] 40.0-44.9, adult; L03.115 Cellulitis of right lower limb; B19.20 Unspecified viral hepatitis C without hepatic coma; K74.69 Other cirrhosis of liver; K74.60 Unspecified cirrhosis of liver; E66.9 Obesity, unspecified; I35.0 Nonrheumatic aortic (valve) stenosis; G43.909 Migraine, unspecified, not intractable, without status migrainosus; Z96.653 Presence of artificial knee joint, bilateral; Z20.822 Contact with and (suspected) exposure to COVID-19; Z90.710 Acquired absence of both cervix and uterus; Z90.49 Acquired absence of other specified parts of digestive tract; Z85.038 Personal history of other malignant neoplasm of large intestine; Z79.899 Other long term (current) drug therapy; Z92.21 Personal history of antineoplastic chemotherapy